=== PATIENT | male | born 1990 | race Caucasian/White ===

== ENCOUNTER 2018-01-15 22:23 | Emergency (ER) | payer BC ==
[~2018-01-15] VITALS: Ht 177.8 cm; Wt 120.2 kg
[2018-01-16] MEDS ORDERED: BENZ100A PO (01:02)
== END 2018-01-16 01:14 | disposition home or self-care (01) ==
LOC: ER 22:23
DX: J20.9 Acute bronchitis, unspecified (principal); Z87.891 Personal history of nicotine dependence
CPT/HCPCS: 71046; 81000; 99283